=== PATIENT | female | born 1970 | race Caucasian/White ===

== ENCOUNTER 2018-04-18 08:55 | Day surgery (SDC) | payer OTHER ==
[~2018-04-18 08:55] MED LIST: HEALTHY HEART1 EACH PO; INTEGRA CAPSUL1 EACH PO; MIRALAX12 EA PO; NEURIN SL; NEURONTIN300 MG PO; PERCOCET 5/3251 TAB PO; POLY119PG PO; SUPERVITE EC CAP1 MG PO; VIT C PO; [UNRECOGNIZED DRUG - OTHER] PO
== END 2018-04-18 12:30 | disposition home or self-care (01) ==
LOC: CIR.AMB 08:55
DX: C20 Malignant neoplasm of rectum (principal)

== ENCOUNTER 2019-10-30 08:00 | Day surgery (SDC) | payer OTHER | END 2019-10-30 15:00 | disposition home or self-care (01) | LOC: AMB-ENDOS 08:00 | DX: K62.89 Other specified diseases of anus and rectum (principal); K64.1 Second degree hemorrhoids ==

== ENCOUNTER → 2021-07-14 | Day surgery (SDC) | payer OTHER | END | disposition home or self-care (01) | LOC: ADM 07-11 15:30 → AMB-ENDOS 10:14 | PROVIDERS: ATTEND Colon & Rectal Surgery | DX: K62.89 Other specified diseases of anus and rectum (principal); K64.0 First degree hemorrhoids; Z20.822 Contact with and (suspected) exposure to COVID-19 ==